=== PATIENT | male | born 1955 | race Caucasian/White ===

== ENCOUNTER 2022-01-18 11:54 | Emergency (ER) | payer MEDICAID, MEDICARE ==
[2022-01-18] MEDS ORDERED: methylPREDNISolone Sodium Succinate 125 MG/2 ML SDV IM STA (12:26)
[2022-01-18] MEDS ORDERED: Ketorolac 30 MG/ML SDV IM ONE (12:27)
== END 2022-01-18 12:44 | disposition home or self-care (01) ==
LOC: CC.ED 11:54
DX: M54.42 Lumbago with sciatica, left side (principal); F17.210 Nicotine dependence, cigarettes, uncomplicated; Z88.5 Allergy status to narcotic agent; Z88.8 Allergy status to other drugs, medicaments and biological substances
CPT/HCPCS: 96372; 99283; 99284; J1885; J2930